=== PATIENT | female | born 2000 | race Caucasian/White ===

== ENCOUNTER 2018-07-18 20:24 | Emergency (ER) | payer OTHER ==
[~2018-07-18] VITALS: Ht 175.3 cm; Wt 158.8 kg
[2018-07-18 21:44] LABS: ABSOLUTE BASOPHILS 0.1 thou/uL (0.0-0.2); ABSOLUTE EOSINOPHILS 0.3 thou/uL (0.0-0.7); ABSOLUTE LYMPHOCYTES 6.2 thou/uL (0.8-5.3); ABSOLUTE MONOCYTES 0.9 thou/uL (0.0-1.2); ABSOLUTE NEUTROPHILS 8.8 thou/uL (1.6-8.1); BASOPHILS 0.7 %; EOSINOPHILS 1.8 %; HEMATOCRIT 44.3 % (37.0-47.0); HEMOGLOBIN 14.8 gm/dL (12.0-15.0); LYMPHOCYTES 38.3 %; MCH 27.3 pg (26.0-34.0); MCHC 33.3 g/dL (28.0-37.0); MCV 81.9 fL (80.0-100.0); MONOCYTES 5.3 %; MPV 8.2 fl. (7.2-11.1); NUCLEATED RBCS 0 /100WBC; PLATELET COUNT* 413 thou/uL (150-400); POLYS 53.9 %; RBC 5.41 mil/uL (4.20-5.00); RDW-CV 13.8 % (10.5-14.5); WBC 16.3 thou/uL (4.0-11.0)
[2018-07-18 21:49] LABS: URINE BILIRUBIN NEGATIVE (Negative); URINE BLOOD NEGATIVE (Negative); URINE CLARITY CLEAR; URINE COLOR YELLOW; URINE GLUCOSE-RANDOM NEGATIVE (Negative); URINE KETONES NEGATIVE (Negative); URINE LEUKOCYTES-REFLEX NEGATIVE (Negative); URINE NITRITE-REFLEX NEGATIVE (Negative); URINE PROTEIN NEGATIVE (Negative); URINE UROBILINOGEN 0.2 E.U./dl (0.2-1.0)
[2018-07-18 21:50] LABS: CALCIUM 8.8 mg/dL (8.5-10.1); CREATININE 0.6 mg/dL (0.6-1.3)
[2018-07-18 21:55] LABS: ALBUMIN 3.6 g/dL (3.4-5.0); TOTAL BILIRUBIN 0.4 mg/dL (<0.1-1.0); TOTAL PROTEIN 8.2 g/dL (6.4-8.2)
[2018-07-19] MEDS ORDERED: NABUMETONE 750750 M1 PO (00:29)
[2018-07-19] MEDS ORDERED: ROBAXIN 750 MG750 M1 PO (00:29)
[2018-07-19 00:47] VITALS: BP 129/76
--- NOTE | 2018-07-19 16:25 | EKG ---
[place] [address] ELECTROCARDIOGRAM REPORT Name: NICK MARIE Room: [facility]#: [id number] Admission: 07/18/18 Attend Phys: Discharge: 07/19/18 Date of : [birth year] Report #: [id number] THIS REPORT FOR: //name// [facility] ED Test Date: 2018-07-18 Test Time: 22:42:40 Pat Name: NICK MARIE Department: Room: Gender: F Search Marketing Coordinator: : 2000 Requested By: Molly Mauro Order Number: [id number] MD: Beltran David Measurements Intervals [place] Rate: 73 P: -9 MI: 139 QRS: 11 QRSD: 84 T: 11 QT: 407 QTc: 449 Interpretive Statements Sinus rhythm LVH by voltage Borderline ST elevation, lateral leads No previous ECG available for comparison Electronically Signed On 07-19-2018 16:24:41 CDT by Beltran David [email or web address] <ELECTRONICALLY SIGNED> By: Beltran David MD, [facility] 07/19/18 1624 [id number] Beltran David MD, FACC /EPI
== END 2018-07-19 00:47 | disposition home or self-care (01) ==
LOC: M.ERS 20:24
PROVIDERS: Nurse Practitioner Family
DX: M54.9 Dorsalgia, unspecified (principal); D72.829 Elevated white blood cell count, unspecified; R19.7 Diarrhea, unspecified